=== PATIENT | male | born 1965 | race Caucasian/White ===

== ENCOUNTER → 2025-06-22 07:17 | Outpatient (REF) | payer BC, SELFPAY ==
[2025-06-22 08:45] LABS: Urine Character Clear (Clear)
[2025-06-22 08:52] LABS: Hematocrit 45.7 % (39.0-52.0); Hemoglobin 14.7 g/dL (13.0-18.0); Mean Corp Hgb Conc. 32.2 g/dL (33.0-37.0); Mean Corpuscular Volume 84.5 fL (80.0-94.0); Nucleated Red Blood Cells % 0 % (-); Platelet Count 171 10^3/uL (130-400); Red Cell Dist. Width 13.9 % (11.5-14.5)
[2025-06-22 09:18] LABS: Urine Squamous Cell 0-2 /LPF (Few)
[2025-06-22 09:31] LABS: Urine Red Blood Cell 0-2 /HPF (0-2); Urine White Cell 0-2 /HPF (0-5)
[2025-06-22 10:01] LABS: PSA, Total - Screen 1.45 ng/ml (0.0-4.0)
[2025-06-22 10:28] LABS: Chloride 107 mmol/L (98-107)
[2025-06-22 10:43] LABS: TSH 1.62 uIU/ml (0.47-4.68)
[2025-06-22 11:13] LABS: ALT (SGPT) 36 U/L (0-50); AST (SGOT) 26 U/L (17-59); Albumin 4.9 g/dl (3.5-5.0); Alkaline Phosphatase 58 U/L (38-126); Blood Urea Nitrogen 20 mg/dl (9-20); Calcium 9.3 mg/dl (8.4-10.2); Carbon Dioxide 26 mmol/L (22-30); Glucose 113 mg/dl (70-99); HDL Cholesterol 41 mg/dl; LDL Cholesterol, Calculated 110 mg/dl; Potassium 4.3 mmol/L (3.5-5.1); Sodium 143 mmol/L (135-145); Total Protein 7.8 g/dl (6.3-8.2); Very Low Density Lipoprotein 14 mg/dl (0-30); eGFR > 60.00
== END ==
LOC: REG 07:17
PROVIDERS: ATTENDING PHYSICIAN Family Medicine
DX: Z00.01 Encounter for general adult medical examination with abnormal findings (principal); R73.03 Prediabetes; I10 Essential (primary) hypertension; E78.5 Hyperlipidemia, unspecified; F41.9 Anxiety disorder, unspecified; N40.1 Benign prostatic hyperplasia with lower urinary tract symptoms; R35.1 Nocturia
CPT/HCPCS: 36415; 80053; 80061; 81003; 81015; 84443; 85025; G0103